=== PATIENT | male | born 1955 | race Caucasian/White ===

== ENCOUNTER 2018-10-15 07:30 | Inpatient (IN) | payer OTHER ==
[2018-10-12 16:32] VITALS: Ht 175.3 cm; Wt 91.5 kg
[2018-10-15] VITALS (26 sets, daily range): BP systolic 121–166; BP diastolic 62–106; PULSE 58–82; RESP 16–31
[~2018-10-15] VITALS: Ht 175.3 cm; Wt 91.5 kg
[2018-10-15] MEDS ORDERED: ACETAMINOPHEN 1000MG/100ML IV 100 ML IVPB ONE (08:30)
[2018-10-15] MEDS ORDERED: DEXAMETHASONE 4 MG/ML 1 ML INJ IV SCH (08:30)
[2018-10-15] MEDS ORDERED: TRANEXAMIC ACID 1GM/100ML(PMX) 100 ML AT CLOSURE X1 IVPB ONE (08:30)
[2018-10-15] MEDS ORDERED: CEFAZOLIN 2 GM/50 ML (PMX) 50 ML IVPB SCH (08:30)
[2018-10-15] MEDS ORDERED: ZOLP12.54 PO (10:17)
[2018-10-15] MEDS ORDERED: FLUR30CA12 PO (10:17)
[2018-10-15] MEDS ORDERED: ESCI20TA PO (10:18)
[2018-10-15] MEDS ORDERED: LAMO200T2 PO (10:18)
[2018-10-15] MEDS ORDERED: LANS30CA PO (10:19)
--- NOTE | 2018-10-15 10:22 | HPN ---
Date/Time of Note Date/Time of Note DATE: 10/15/18 TIME: 10:22 Interval H&P Admission Note Pt. seen H&P reviewed: No system changes CHIQUITA OWENS Oct 15, 2018 10:22
[2018-10-15] MEDS ORDERED: LACTATED RINGER'S 1,000 ML IV SCH (10:30)
[2018-10-15] MEDS ORDERED: BUPIVACAINE 0.5% (SDV) 30 ML INJ ONE (10:59)
[2018-10-15] MEDS ORDERED: ROPIVACAINE 0.5 % 30 ML VIAL ONE (10:59)
[2018-10-15] MEDS ORDERED: BACITRACIN 50000 UNITS INJ ONE (11:21)
--- NOTE | 2018-10-15 11:34 | PREAC ---
Date/Time of Note Date/Time of Note DATE: 10/15/18 TIME: 11:34 Anesthesia Eval and Record Evaluation Time Pre-Procedure Interview DATE: 10/15/18 TIME: 11:34 Age 62 Sex male NPO: 8 hrs Preoperative diagnosis Degenerative joint disease, bilateral knees Planned procedure Bilateral total knee replacement Past Medical History Past Medical History: Includes Pulm: Sleep Apnea, Asthma Psych: Depression Surgery & Anesthesia Issues No known issue Meds Anticoagulation: No Beta Aleena within 24 hr: No Reason Beta Aleena not given: Pt. not on B-Aleena Reported Medications Lansoprazole* (Lansoprazole*) 30 Mg Capsule.dr, 30 MG PO DAILY, CAP 10/15/18 Escitalopram Oxalate* (Lexapro*) 20 Mg Tablet, 20 MG PO DAILY, #30 TAB 10/15/18 Lamotrigine* (Lamotrigine*) 200 Mg Tablet, 200 MG PO BID, TAB 10/15/18 Zolpidem Tartrate* (Zolpidem Tartrate* ER) 12.5 Mg Tab.mphase, 12.5 MG PO HS PRN for INSOMNIA, #30 TAB.SA 10/15/18 Flurazepam Hcl (Flurazepam Hcl) 30 Mg Capsule, 30 MG PO DAILY, CAP 10/15/18 Current Medications Cefazolin Sodium/ Dextrose 50 ml @ 100 mls/hr ONCE IVPB ; Start 10/15/18 at 08:30; Stop 10/15/18 at 16:00 Lactated Ringer's 1,000 ml @ 125 mls/hr Q8H IV Last administered on 10/15/18at 10:59; Admin Dose 125 MLS/HR; Start 10/15/18 at 10:30 Meds reviewed: Yes Allergies Coded Allergies: No Known Allergy (Unverified , 10/15/18) Allergies Reviewed: Yes Labs/Studies Labs Reviewed: Reviewed by anesthesiologist test: N/A Pre-procedure Exam Last vitals Vital Signs Date Temp Pulse Resp B/P (MAP) Pulse Ox O2 O2 Flow FiO2 Time Delivery Rate 10/15/18 97.7 67 16 121/81 97 Room Air 10:34 (94) Airway: Adequate mouth opening Mallampati: Mallampati II Teeth: Normal Lung: Normal Heart: Normal ASA Physical Status ASA physical status: 2 Emergency: None Planned Anesthetic General/MAC: LMA Neuraxial: Spinal Planned Pain Management Single shot nerve block Pre-operative Attestations Prior to commencing anesthesia and surgery, the patient was re-evaluated, there was verification of: *The patient's identity *The results of appropriate recent lab work and preoperative vital signs *The above evaluation not changing prior to induction *Anesthetic plan, risk benefits, alternative and complications discussed with patient/family; questions answered; patient/family understands, accepts and wishes to proceed. JACOB SMITH MD Oct 15, 2018 11:34
[2018-10-15] MEDS ORDERED: PROPOFOL 20 ML ONE (11:42)
[2018-10-15] MEDS ORDERED: LIDOCAINE 2% (SDV) 5 ML INJ ONE (11:42)
[2018-10-15] MEDS ORDERED: POLYMYXIN B 500000 UNIT INJ ONE (11:43)
[2018-10-15] MEDS ORDERED: TRANEXAMIC ACID 1GM/100ML(PMX) 100 ML ONE (11:44)
[2018-10-15] MEDS: TRANEXAMIC ACID 1GM/100ML(PMX) 100 ML AT INCISION X1 IVPB ONE ×2 (12:57)
--- NOTE | 2018-10-15 15:30 | SIPON ---
Date/Time of Note Date/Time of Note DATE: 10/15/18 TIME: 15:29 Operative Report Preoperative Diagnosis Bilateral knee osteoarthritis Postoperative Diagnosis Same Operation/Procedure Performed Bilateral total knee replacement Surgeon see signature line case assistant KHALIDA Angeles Anesthesia: spinal Estimated blood loss: 250 - 300 ml's Transfusion Required none Specimen Bone Grafts/Implants Attune knee, right side has 6 femur, 6 tibia, 5 mm polyethylene and 35 patella. Left side has 6 femur, 5 tibia, 5 mm polyethylene and 35 patella Complications none CHIQUITA OWENS Oct 15, 2018 15:30
--- NOTE | 2018-10-15 15:35 | OPR ---
Date/Time of Note Date/Time of Note DATE: 10/15/18 TIME: 15:30 Operative Report Procedure Date: Oct 15, 2018 Preoperative Diagnosis Bilateral knee osteoarthritis Postoperative Diagnosis Same Operation/Procedure Performed Bilateral total knee replacement Surgeon see signature line Party Supply Specialist ESTEFANIA Angeles Anesthesia Type: spinal Estimated Blood Loss: 250 - 300 ml's Transfusion none Specimen Bone Grafts/Implants Attune knee, right side 6 femur, 6 tibia, 5 mm polyethylene and 35 patella. Left side femur, 5 tibia, 5 polyethylene and 35 patella Tubes/Drains None Complications none Pt Condition Post Procedure: stable Disposition: PACU Indications The patient is a 62-year-old male with advanced osteoarthritis of both his knees Procedure Description The patient was placed supine on the operating room table. Both knees were prepped and draped in usual manner. Preoperative antibiotics were administered. The left knee was addressed first. An anterior incision was made. A mid vastus approach was used and the patella displaced laterally without everting it. Hemostasis was achieved with electrocautery and aqua mantis. Using intramedullary alignment, the distal femoral cut was made in 5 degrees of valgus. The tibia was cut using external alignment. The femur was prepared for a posterior stabilized femoral component. Anterior posterior and chamfer cuts were made. A notch was cut in the distal femur to accommodate the posterior stabilized femoral component. PCL was sacrificed and remnants of the menisci were removed. The patella was cut using a freehand technique. Trials were inserted including a 6 femur, 5 tibia, 35 patella and 5 mm of polyethylene. This resulted in a stable knee from 0 to 120 degrees with good balance and tracking. X-rays confirmed proper alignment of the implants. The trials were then removed and the knee injected with pain cocktail. Hemostasis was confirmed. The knee was thoroughly irrigated and final components cemented in place including a 6 femur, 5 tibia, 35 patella. 5 mm of polyethylene were placed and the knee was carried through full range of motion. The knee was stable with excellent range of motion. The wound was closed in layers using #1 strata fix for deep fascia, 2-0 Vicryl for subcutaneous tissue and 3-0 Monocryl for the skin. The right knee was then exposed. An anterior incision was made. Mid vastus ap proach was used and the patella displaced laterally without everting it. Using intramedullary alignment, the distal femoral cut was made in 5 degrees of valgus. Anterior posterior and chamfer cuts were made. A notch was cut in the distal femur to accommodate the posterior stabilized femoral component. The PCL was sacrificed remnants of the menisci were removed the femur was prepared for a size 6 component. The tibia was cut using external alignment and the patella cut using a freehand technique. The tibia was prepared for a size 6 component and the patella for a 35 mm component trials were inserted. The knee was stable from 0 220 degrees with good balance and tracking. X-rays confirm proper alignment of the implants. Once satisfactory alignment was confirmed, final components were replaced including a 6 femur, 6 tibia, 35 patella and 5 mm of polyethylene. Excess cement was removed. The knee was injected with pain cocktail. The knee had full range of motion with good balance and stability. The knee was closed in layers using #1 strata fix for deep fascia, 2-0 Vicryl for subcutaneous tissue and 3 Monocryl for the skin. Patient was transferred to the recovery room in stable condition CHIQUITA OWENS Oct 15, 2018 15:35
[2018-10-15] MEDS ORDERED: MAGNESIUM HYDROXIDE 30ML CUP PO PRN (16:00)
[2018-10-15] MEDS ORDERED: NACL 0.9% 3 ML SYG IV SCH (16:00)
[2018-10-15] MEDS ORDERED: NALOXONE (0.4 MG/ML) INJ IV PRN (16:00)
[2018-10-15] MEDS ORDERED: MIDAZOLAM 1 MG/ML 2 ML INJ IV PRN (17:00)
[2018-10-15] MEDS ORDERED: DIPHENHYDRAMINE 50 MG INJ IV PRN (17:00)
[2018-10-15] MEDS ORDERED: OXYCODONE/ACETAMINOPHEN (5/325) TAB PO PRN ×2 (17:00)
[2018-10-15] MEDS ORDERED: FENTAnyl 50 MCG/ML VIAL IV PRN ×3 (17:00)
[2018-10-15] MEDS ORDERED: HYDROmorphONE 1 MG/5 ML IV SYRINGE IV PRN ×3 (17:00)
[2018-10-15] MEDS ORDERED: ONDANSETRON 4 MG INJ IV PRN (17:00)
[2018-10-15] MEDS ORDERED: MEPERIDINE 25 MG INJ IV PRN (17:00)
[2018-10-15] MEDS ORDERED: LABETALOL HCL 20MG INJ IV PRN (17:00)
[2018-10-15] MEDS ORDERED: EPHEDrine 25 MG/5 ML SYG IV PRN (17:00)
[2018-10-15] MEDS ORDERED: hydrALAzine 20 MG INJ IV PRN (17:00)
[2018-10-15] MEDS ORDERED: METOCLOPRAMIDE 10 MG INJ IV PRN (17:00)
[2018-10-15] MEDS: KETOROLAC 15 MG INJ IV PRN (17:15)
[2018-10-15] MEDS: CEFAZOLIN 2 GM/50 ML (PMX) 50 ML IVPB SCH (17:35)
[2018-10-15] MEDS: oxyCODONE 5 MG TAB PO PRN (18:19)
[2018-10-15] MEDS: LACTATED RINGER'S 1,000 ML IV SCH (18:32)
--- NOTE | 2018-10-15 18:33 | HP ---
Date/Time of Note Date/Time of Note DATE: 10/15/18 TIME: 18:33 Assessment/Plan VTE Prophylaxis SCD applied (from Ns): Yes Pharmacological prophylaxis: other Lines/Catheters Urinary Cath still in place: Yes Reason Cath still needed: urinary retention Assessment/Plan Assessment/Plan -Bilateral knee osteoarthritis. S/P Bilateral total knee replacement by Dr Persaud continue IV fluids and postoperative antibiotica. Continue Roxicodone and Tor adol as needed for pain and Zofran as needed for nausea, follow-up orthopedic surgery recommendations. Physical therapy. -Depression, resume antidepressant medication from home. Further recommendations based on clinical course. Plan of care discussed with Dr. Crowe. HPI/ROS Admit Date/Time Admit Date/Time Oct 15, 2018 at 09:36 Hx of Present Illness The patient is a 62-year-old gentleman with advanced positive arthritis of bilateral knees was evaluated by in orthopedic surgery consultation. Patient had a history of depression, sleep apnea and hearing impairment. Patient was brought to the hospital and underwent bilateral total knee replacement. Postoperatively patient experiencing moderate pain and patient is admitted for further evaluation and management to medical surgical floor. ROS 12 point review of system is negative except for what mentioned in HPI PMH/Family/Social Past Medical History Medical History: other (Sleep apnea, depression, hearing impairment) Medications Current Medications Lactated Ringer's 1,000 ml @ 80 mls/hr [id number] IV ; Start 10/15/18 at 15:35 IV Flush (NS 3 ml) 3 ml PER PROTOCOL IV ; Start 10/15/18 at 16:00 Oxycodone HCl (Roxicodone) 15 mg Q4H PRN PO .PAIN; Start 10/15/18 at 16:00 Oxycodone HCl (Roxicodone) 10 mg Q4H PRN PO .PAIN Last administered on 10/15/18at 18:19; Admin Dose 10 MG; Start 10/15/18 at 16:00 Oxycodone HCl (Roxicodone) 5 mg Q4H PRN PO .PAIN; Start 10/15/18 at 16:00 Ketorolac Tromethamine (Toradol) 15 mg Q6H PRN IV .PAIN Last administered on 10/15/18at 17:15; Admin Dose 15 MG; Start 10/15/18 at 16:00 Ondansetron HCl (Zofran Inj) 4 mg Q4H PRN IV NAUSEA/VOMITING Last administered on 10/15/18at 17:02; Admin Dose 4 MG; Start 10/16/18 at 16:00 Cefazolin Sodium/ Dextrose 50 ml @ 100 mls/hr Q8H IVPB Last administered on 10/15/18at 17:35; Admin Dose 100 MLS/HR; Start 10/15/18 at 16:00; Stop 10/16/18 at 08:29 Celecoxib (Celebrex) 100 mg BID PO ; Start 10/16/18 at 09:00 Gabapentin (Neurontin) 100 mg TID PO ; Start 10/15/18 at 21:00 Pantoprazole (Protonix Tab) 40 mg DAILY@06 PO ; Start 10/17/18 at 06:00 Docusate Sodium (Colace) 200 mg BID PO ; Start 10/16/18 at 09:00; Stop 10/19/18 at 08:59 Magnesium Hydroxide (Milk Of Mag) 30 ml HS PRN PO .CONSTIPATION; Start 10/15/18 at 16:00 Naloxone HCl (Narcan) 0.2 mg Q2M PRN IV .RESP RATE; Start 10/15/18 at 16:00 Aspirin (Halfprin) 81 mg BID PO ; Start 10/16/18 at 09:00 Hydromorphone HCl (Dilaudid) 0.2 mg PACU PRN IV MILD PAIN 1-3 Last administered on 10/15/18at 17:01; Admin Dose 0.2 MG; Start 10/15/18 at 17:00; Stop 10/15/18 at 22:00 Hydromorphone HCl (Dilaudid) 0.4 mg PACU PRN IV MOD PAIN 4-6; Start 10/15/18 at 17:00; Stop 10/15/18 at 22:00 Hydromorphone HCl (Dilaudid) 0.6 mg PACU PRN IV SEVERE PAIN 7-10; Start 10/15/18 at 17:00; Stop 10/15/18 at 22:00 Fentanyl (Sublimaze) 25 mcg PACU ORDER PRN IV MILD PAIN 1-3 Last administered on 10/15/18at 17:02; Admin Dose 25 MCG; Start 10/15/18 at 17:00; Stop 10/15/18 at 22:00 Fentanyl (Sublimaze) 50 mcg PACU ORDER PRN IV MOD PAIN 4-6; Start 10/15/18 at 17:00; Stop 10/15/18 at 22:00 Fentanyl (Sublimaze) 75 mcg PACU ORDER PRN IV SEVERE PAIN 7-10; Start 10/15/18 at 17:00; Stop 10/15/18 at 22:00 Oxycodone/ Acetaminophen (Percocet (5/ 325)) 1 tab PACU ORDER PRN PO .PAIN 1-5; Start 10/15/18 at 17:00; Stop 10/15/18 at 22:00 Oxycodone/ Acetaminophen (Percocet (5/ 325)) 2 tab PACU ORDER PRN PO .PAIN 6-10; Start 10/15/18 at 17:00; Stop 10/15/18 at 22:00 Ondansetron HCl (Zofran Inj) 4 mg PACU ORDER PRN IV NAUSEA/VOMITING; Start 10/15/18 at 17:00; Stop 10/15/18 at 22:00 Metoclopramide HCl (Reglan) 10 mg PACU ORDER PRN IV NAUSEA/VOMITING; Start 10/15/18 at 17:00; Stop 10/15/18 at 22:00 Labetalol HCl (Labetalol) 5 mg PACU ORDER PRN IV HIGH BLOOD PRESSURE; Start 10/15/18 at 17:00; Stop 10/15/18 at 22:00 Hydralazine HCl (Apresoline) 5 mg PACU ORDER PRN IV HIGH BLOOD PRESSURE; Start 10/15/18 at 17:00; Stop 10/15/18 at 22:00 Ephedrine Sulfate 5 mg PACU ORDER PRN IV BLOOD PRESSURE SUPPORT; Start 10/15/18 at 17:00; Stop 10/15/18 at 22:00 Meperidine HCl (Demerol) 25 mg PACU ORDER PRN IV .RIGORS; Start 10/15/18 at 17:00; Stop 10/15/18 at 22:00 Diphenhydramine HCl (Benadryl) 25 mg PACU ORDER PRN IV .PRURITUS; Start 10/15/18 at 17:00; Stop 10/15/18 at 22:00 Midazolam HCl (Versed) 0.5 mg PACU ORDER PRN IV .ANXIETY; Start 10/15/18 at 17:00; Stop 10/15/18 at 22:00 Coded Allergies: No Known Allergy (Unverified , 10/15/18) Past Surgical History Past Surgical Hx: other (Status post right hand fracture repair) Family History Significant Family History: cancer (Renal cell carcinoma in patient's father, breast cancer in patient's mother) Social History Alcohol Use: rarely Smoking Status: Never smoker Drug Use: none Exam/Review of Systems Vital Signs Vitals Vital Signs Date Temp Pulse Resp B/P (MAP) Pulse Ox O2 O2 Flow FiO2 Time Delivery Rate 10/15/18 97.7 16:37 10/15/18 67 16 121/81 97 Room Air 10:34 (94) Exam Constitutional: alert, oriented Head: normocephalic Neck: supple Respiratory: clear to auscultation Cardiovascular: nl pulses Gastrointestinal: soft, non-tender Musculoskeletal: other (Status post bilateral total knee replacement) Extremities: normal pulses Neurological: nl mental status FARTUN STANTON Oct 15, 2018 18:33
[2018-10-15] MEDS: GABAPENTIN 100 MG CAP PO SCH (20:46)
[2018-10-15] MEDS: HYDROmorphONE 1 MG/ML SYG IV PRN (20:46)
--- NOTE | 2018-10-15 21:23 | PAC ---
Date/Time of Note Date/Time of Note DATE: 10/15/18 TIME: 21:23 Post-Anesthesia Notes Post-Anesthesia Note Last documented vital signs Vital Signs Date Temp Pulse Resp B/P (MAP) Pulse Ox O2 O2 Flow FiO2 Time Delivery Rate 10/15/18 98.0 61 18 154/70 97 19:30 (98) 10/15/18 Nasal 2.0 17:57 Cannula Activity: WNL Respiratory function: WNL Cardiovascular function: WNL Mental status: Baseline Pain reasonably controlled: Yes Hydration appropriate: Yes Nausea/Vomiting absent: Yes JACOB SMITH MD Oct 15, 2018 21:23
[2018-10-16] VITALS (7 sets, daily range): BP systolic 133–157; BP diastolic 60–87; PULSE 59–66; RESP 17–19
[2018-10-16] MEDS ORDERED: ZOLPIDEM TARTRATE 12.5 MG PO PRN
[2018-10-16] MEDS: ZOLPIDEM 5 MG TAB PO PRN ×2 (00:08→20:46)
[2018-10-16] MEDS: KETOROLAC 15 MG INJ IV PRN ×3 (00:15→20:46)
[2018-10-16] MEDS ORDERED: PANTOPRAZOLE (EC) 40 MG TAB PO SCH ×2 (00:30→18:00)
[2018-10-16] MEDS: CALCIUM CARBONATE 500 MG CHEW TAB PO PRN ×2 (00:46→10:50)
[2018-10-16] MEDS: LACTATED RINGER'S 1,000 ML IV SCH ×2 (00:47→18:15)
[2018-10-16] MEDS: CEFAZOLIN 2 GM/50 ML (PMX) 50 ML IVPB SCH ×2 (00:49→09:47)
--- NOTE | 2018-10-16 02:56 | PN ---
Date/Time of Note Date/Time of Note DATE: 10/16/18 TIME: 02:56 Assessment/Plan VTE Prophylaxis SCD applied (from Nsg): Yes Lines/Catheters IV Catheter Type (from Nrsg): Peripheral IV Urinary Cath still in place: Yes Reason Cath still needed: urinary retention Assessment/Plan Assessment/Plan -Bilateral knee osteoarthritis. S/P Bilateral total knee replacement by Dr Persaud continue IV fluids and postoperative antibiotica. Continue Roxicodone and Toradol as needed for pain and Zofran as needed for nausea, follow-up orthopedic surgery recommendations. Physical therapy. -Depression, resume antidepressant medication from home. Further recommendations based on clinical course. Plan of care discussed with Dr. Crowe. Exam/Review of Systems Exam Vitals Vital Signs Date Temp Pulse Resp B/P (MAP) Pulse Ox O2 O2 Flow FiO2 Time Delivery Rate 10/15/18 97.5 58 18 160/93 100 23:35 (115) 10/15/18 Nasal 2.0 17:57 Cannula Intake and Output 10/15/18 10/15/18 10/16/18 1515:00 23:00 07:00 IntakeIntake Total 2100 ml 700 ml OutputOutput Total 300 ml BalanceBalance 2100 ml 400 ml Medications Medication Current Medications Lactated Ringer's 1,000 ml @ 80 mls/hr [id number] IV Last administered on 10/16/18at 00:47; Admin Dose 80 MLS/HR; Start 10/15/18 at 15:35 IV Flush (NS 3 ml) 3 ml PER PROTOCOL IV Last administered on 10/15/18at 20:46; Admin Dose 3 ML; Start 10/15/18 at 16:00 Oxycodone HCl (Roxicodone) 15 mg Q4H PRN PO .PAIN; Start 10/15/18 at 16:00 Oxycodone HCl (Roxicodone) 10 mg Q4H PRN PO .PAIN Last administered on 10/15/18at 18:19; Admin Dose 10 MG; Start 10/15/18 at 16:00 Oxycodone HCl (Roxicodone) 5 mg Q4H PRN PO .PAIN; Start 10/15/18 at 16:00 Ketorolac Tromethamine (Toradol) 15 mg Q6H PRN IV .PAIN Last administered on 10/16/18at 00:15; Admin Dose 15 MG; Start 10/15/18 at 16:00 Ondansetron HCl (Zofran Inj) 4 mg Q4H PRN IV NAUSEA/VOMITING Last administered on 10/15/18at 17:02; Admin Dose 4 MG; Start 10/16/18 at 16:00 Cefazolin Sodium/ Dextrose 50 ml @ 100 mls/hr Q8H IVPB Last administered on 10/16/18at 00:49; Admin Dose 100 MLS/HR; Start 10/15/18 at 16:00; Stop 10/16/18 at 08:29 Celecoxib (Celebrex) 100 mg BID PO ; Start 10/16/18 at 09:00 Gabapentin (Neurontin) 100 mg TID PO Last administered on 10/15/18at 20:46; Admin Dose 100 MG; Start 10/15/18 at 21:00 Docusate Sodium (Colace) 200 mg BID PO ; Start 10/16/18 at 09:00; Stop 10/19/18 at 08:59 Magnesium Hydroxide (Milk Of Mag) 30 ml HS PRN PO .CONSTIPATION; Start 10/15/18 at 16:00 Naloxone HCl (Narcan) 0.2 mg Q2M PRN IV .RESP RATE; Start 10/15/18 at 16:00 Aspirin (Halfprin) 81 mg BID PO ; Start 10/16/18 at 09:00 Hydromorphone HCl (Dilaudid) 1 mg Q3H PRN IV SEVERE PAIN LEVEL 7-10 Last administered on 10/15/18at 20:46; Admin Dose 1 MG; Start 10/15/18 at 20:20 Escitalopram Oxalate (Lexapro) 20 mg DAILY PO ; Start 10/16/18 at 09:00 Lamotrigine (Lamictal) 200 mg BID PO ; Start 10/16/18 at 09:00 Miscellaneous Information 30 mg DAILY PO ; Start 10/16/18 at 09:00; Status UNV Zolpidem Tartrate (Ambien) 10 mg HS PRN PO INSOMNIA Last administered on 10/16/18at 00:08; Admin Dose 10 MG; Start 10/15/18 at 23:45 Pantoprazole (Protonix Tab) 40 mg DAILY PO Last administered on 10/16/18at 00:47; Admin Dose 40 MG; Start 10/16/18 at 00:30 Calcium Carbonate (Tums) 1,000 mg Q6H PRN PO HEARTBURN Last administered on 10/16/18at 00:46; Admin Dose 1,000 MG; Start 10/16/18 at 00:30 MAGDLAENA FABIAN Oct 16, 2018 02:56
--- NOTE | 2018-10-16 02:57 | ERD ---
ER Documentation Chief Complaint Chief Complaint ROS All systems reviewed and are negative except as per history of present illness. Medications Home Meds Reported Medications Lansoprazole* (Lansoprazole*) 30 Mg Capsule.dr, 30 MG PO DAILY, CAP 10/15/18 Escitalopram Oxalate* (Lexapro*) 20 Mg Tablet, 20 MG PO DAILY, #30 TAB 10/15/18 Lamotrigine* (Lamotrigine*) 200 Mg Tablet, 200 MG PO BID, TAB 10/15/18 Zolpidem Tartrate* (Zolpidem Tartrate* ER) 12.5 Mg Tab.mphase, 12.5 MG PO HS PRN for INSOMNIA, #30 TAB.SA 10/15/18 Flurazepam Hcl (Flurazepam Hcl) 30 Mg Capsule, 30 MG PO DAILY, CAP 10/15/18 Allergies Allergies: Coded Allergies: No Known Allergy (Unverified , 10/15/18) PMhx/Soc History of Surgery: Yes (RT HAND SX. ') Anesthesia Reaction: No Hx Neurological Disorder: No Hx Respiratory Disorders: Yes (SLEEP APNEA) Hx Cardiac Disorders: No Hx Psychiatric Problems: Yes (DEPRESSION) Hx Miscellaneous Medical Probl: No Hx Alcohol Use: No Hx Substance Use: No Hx Tobacco Use: No Smoking Status: Never smoker Physical Exam Vitals Vital Signs Date Temp Pulse Resp B/P (MAP) Pulse Ox O2 O2 Flow FiO2 Time Delivery Rate 10/15/18 97.5 58 18 160/93 100 23:35 (115) 10/15/18 98.0 61 18 154/70 97 19:30 (98) 10/15/18 Nasal 2.0 17:57 Cannula 10/15/18 98.4 73 18 143/85 100 Room Air 17:54 (104) 10/15/18 68 17 150/92 100 Room Air 17:49 (111) 10/15/18 64 21 133/89 100 Room Air 17:44 (104) 10/15/18 74 20 148/95 99 Room Air 17:39 (112) 10/15/18 62 31 153/100 100 Room Air 17:34 (117) 10/15/18 58 16 141/85 100 Room Air 17:29 (103) 10/15/18 60 18 151/92 100 Room Air 17:24 (111) 10/15/18 58 17 153/91 100 Room Air 17:19 (111) 10/15/18 64 24 147/89 92 Room Air 17:14 (108) 10/15/18 70 23 161/98 98 Room Air 17:07 (119) 10/15/18 70 21 155/106 98 Room Air 17:04 (122) 10/15/18 66 24 154/99 96 Room Air 16:59 (117) 10/15/18 70 16 154/96 98 Room Air 16:54 (115) 10/15/18 72 21 148/92 97 Nasal 2.0 16:49 (110) Cannula 10/15/18 72 16 166/96 98 Nasal 2.0 16:45 (119) Cannula 10/15/18 78 19 158/101 98 Nasal 4.0 16:44 (120) Cannula 10/15/18 74 16 154/96 98 Nasal 4.0 16:39 (115) Cannula 10/15/18 97.7 16:37 10/15/18 76 21 149/91 98 Mask 8.0 16:34 (110) 10/15/18 77 19 150/83 99 Mask 8.0 16:29 (105) 10/15/18 97.7 82 18 148/84 98 Mask 8.0 16:24 (105) 10/15/18 Simple 8.0 16:24 Mask 10/15/18 97.7 67 16 121/81 97 Room Air 10:34 (94) Physical Exam Const: No acute distress Head: Atraumatic Eyes: Normal Conjunctiva ENT: Normal External Ears, Nose and Mouth. Neck: Full range of motion. No meningismus. Resp: Clear to auscultation bilaterally Cardio: Regular rate and rhythm, no murmurs Abd: Soft, non tender, non distended. Normal bowel sounds Skin: No petechiae or rashes Back: No midline or flank tenderness Ext: No cyanosis, or edema Neur: Awake and alert Psych: Normal Mood and Affect Results 24 hrs Current Medications Medications Dose Sig/Marah Start Time Status Last (Trade) Ordered Route PRN Stop Time Admin Dose Reason Admin Cefazolin 50 ml @ ONCE IVPB 10/15/18 DC Sodium/ 100 mls/hr 08:30 Dextrose 10/15/18 16:00 100 ml @ ONCE ONCE 10/15/18 DC 10/15/18 Acetaminophen 400 mls/hr IVPB 08:30 10:21 400 10/15/18 08:44 MLS/HR 4 mg ONCE IV 10/15/18 DC 10/15/18 Dexamethasone 08:30 10:20 4 MG (Decadron) 10/15/18 08:31 Tranexamic 100 ml @ AT INCISION 10/15/18 DC 10/15/18 Acid 200 mls/hr ONCE IVPB 08:30 12:57 10/15/18 08:59 Tranexamic 100 ml @ AT CLOSURE 10/15/18 DC Acid 330 mls/hr ONCE IVPB 08:30 10/15/18 08:48 INTRA-OP 10/15/18 DC 10/15/18 Ropivacaine/ ONCE IRR 08:30 14:20 111.5 Clonidine 10/15/18 08:31 ML HCl/ Epinephrine/ Ketorolac Tromethamine/ Sodium Chloride Lactated 1,000 ml @ Q8H IV 10/15/18 DC 10/15/18 Ringer's 125 mls/hr 10:30 10:59 125 10/15/18 16:04 MLS/HR Ropivacaine 30 ml STK-MED 10/15/18 DC (Naropin ONCE .ROUTE 10:59 0.5%) 10/15/18 11:00 Bupivacaine 30 ml STK-MED 10/15/18 DC HCl ONCE .ROUTE 10:59 (Marcaine 10/15/18 11:00 0.5% (Sdv)) Bacitracin 50,000 units STK-MED 10/15/18 DC 10/15/18 (Baciim) ONCE .ROUTE 11:21 12:40 50,000 10/15/18 11:22 UNITS Propofol 20 ml @ ud STK-MED 10/15/18 DC ONCE .ROUTE 11:42 10/15/18 11:43 Lidocaine 100 mg STK-MED 10/15/18 DC (Xylocaine ONCE .ROUTE 11:42 2% (Sdv)) 10/15/18 11:43 Polymyxin B 500,000 unit STK-MED 10/15/18 DC 10/15/18 Sulfate ONCE .ROUTE 11:43 12:40 500,00 (Polymyxin B) 10/15/18 11:44 0 UNIT Tranexamic 100 ml @ ud STK-MED 10/15/18 DC Acid ONCE .ROUTE 11:44 10/15/18 11:45 Lactated 1,000 ml @ [id number] IV 10/15/18 10/16/18 Ringer's 80 mls/hr 15:35 00:47 80 MLS/HR IV Flush 3 ml PER 10/15/18 10/15/18 (NS 3 ml) PROTOCOL IV 16:00 20:46 3 ML Oxycodone 15 mg Q4H PRN 10/15/18 HCl PO .PAIN 16:00 (Roxicodone) Oxycodone 10 mg Q4H PRN 10/15/18 10/15/18 HCl PO .PAIN 16:00 18:19 10 MG (Roxicodone) Oxycodone 5 mg Q4H PRN 10/15/18 HCl PO .PAIN 16:00 (Roxicodone) Ketorolac 15 mg Q6H PRN 10/15/18 10/16/18 Tromethamine IV .PAIN 16:00 00:15 15 MG (Toradol) Ondansetron 4 mg Q4H PRN 10/16/18 10/15/18 HCl (Zofran IV 16:00 17:02 4 MG Inj) NAUSEA/VOMITI NG Cefazolin 50 ml @ Q8H IVPB 10/15/18 10/16/18 Sodium/ 100 mls/hr 16:00 00:49 100 Dextrose 10/16/18 08:29 MLS/HR Celecoxib 100 mg BID PO 10/16/18 (Celebrex) 09:00 Gabapentin 100 mg TID PO 10/15/18 10/15/18 (Neurontin) 21:00 20:46 100 MG 40 mg DAILY@06 10/17/18 DC Pantoprazole PO 06:00 (Protonix 10/17/18 06:00 Tab) Docusate 200 mg BID PO 10/16/18 Sodium 09:00 (Colace) 10/19/18 08:59 Magnesium 30 ml HS PRN PO 10/15/18 Hydroxide .CONSTIPATION 16:00 (Milk Of Mag) Naloxone 0.2 mg Q2M PRN IV 10/15/18 HCl .RESP RATE 16:00 (Narcan) Aspirin 81 mg BID PO 10/16/18 (Halfprin) 09:00 0.2 mg PACU PRN 10/15/18 DC 10/15/18 Hydromorphone IV MILD PAIN 17:00 17:01 0.2 MG HCl 1-3 10/15/18 22:00 (Dilaudid) 0.4 mg PACU PRN 10/15/18 DC Hydromorphone IV MOD PAIN 17:00 HCl 4-6 10/15/18 22:00 (Dilaudid) 0.6 mg PACU PRN 10/15/18 DC Hydromorphone IV SEVERE 17:00 HCl PAIN 7-10 10/15/18 22:00 (Dilaudid) Fentanyl 25 mcg PACU ORDER 10/15/18 DC 10/15/18 (Sublimaze) PRN IV MILD 17:00 17:02 25 MCG PAIN 1-3 10/15/18 22:00 Fentanyl 50 mcg PACU ORDER 10/15/18 DC (Sublimaze) PRN IV MOD 17:00 PAIN 4-6 10/15/18 22:00 Fentanyl 75 mcg PACU ORDER 10/15/18 DC (Sublimaze) PRN IV 17:00 SEVERE PAIN 10/15/18 22:00 7-10 Oxycodone/ 1 tab PACU ORDER 10/15/18 DC Acetaminophen PRN PO 17:00 (Percocet .PAIN 1-5 10/15/18 22:00 (5/ 325)) Oxycodone/ 2 tab PACU ORDER 10/15/18 DC Acetaminophen PRN PO 17:00 (Percocet .PAIN 6-10 10/15/18 22:00 (5/ 325)) Ondansetron 4 mg PACU ORDER 10/15/18 DC HCl (Zofran PRN IV 17:00 Inj) NAUSEA/VOMITI 10/15/18 22:00 NG 10 mg PACU ORDER 10/15/18 DC Metoclopramid PRN IV 17:00 e HCl NAUSEA/VOMITI 10/15/18 22:00 (Reglan) NG Labetalol 5 mg PACU ORDER 10/15/18 DC HCl PRN IV HIGH 17:00 (Labetalol) BLOOD 10/15/18 22:00 PRESSURE Hydralazine 5 mg PACU ORDER 10/15/18 DC HCl PRN IV HIGH 17:00 (Apresoline) BLOOD 10/15/18 22:00 PRESSURE Ephedrine 5 mg PACU ORDER 10/15/18 DC Sulfate PRN IV 17:00 BLOOD 10/15/18 22:00 PRESSURE SUPPORT Meperidine 25 mg PACU ORDER 10/15/18 DC HCl PRN IV 17:00 (Demerol) .RIGORS 10/15/18 22:00 25 mg PACU ORDER 10/15/18 DC Diphenhydrami PRN IV 17:00 ne HCl .PRURITUS 10/15/18 22:00 (Benadryl) Midazolam 0.5 mg PACU ORDER 10/15/18 DC HCl PRN IV 17:00 (Versed) .ANXIETY 10/15/18 22:00 1 mg Q3H PRN 10/15/18 10/15/18 Hydromorphone IV SEVERE 20:20 20:46 1 MG HCl PAIN LEVEL (Dilaudid) 7-10 20 mg DAILY PO 10/16/18 Escitalopram 09:00 Oxalate (Lexapro) Lamotrigine 200 mg BID PO 10/16/18 (Lamictal) 09:00 30 mg DAILY PO 10/16/18 DC Lansoprazole 09:00 (Prevacid) 10/16/18 09:00 30 mg DAILY PO 10/16/18 UNV Miscellaneous 09:00 Information 12.5 mg HS PRN PO 10/16/18 DC Miscellaneous INSOMNIA 00:00 Information 10/16/18 00:00 Zolpidem 10 mg HS PRN PO 10/15/18 10/16/18 Tartrate INSOMNIA 23:45 00:08 10 MG (Ambien) 40 mg DAILY PO 10/16/18 10/16/18 Pantoprazole 00:30 00:47 40 MG (Protonix Tab) Calcium 1,000 mg Q6H PRN 10/16/18 10/16/18 Carbonate PO HEARTBURN 00:30 00:46 1,000 (Tums) MG MAGDALENA FABIAN Oct 16, 2018 02:57
[2018-10-16] MEDS: HYDROmorphONE 1 MG/ML SYG IV PRN ×2 (03:48→12:24)
[2018-10-16] MEDS: oxyCODONE 5 MG TAB PO PRN ×3 (06:47→19:45)
[2018-10-16] MEDS: DOCUSATE SODIUM 100 MG CAP PO SCH ×2 (08:44→20:48)
[2018-10-16] MEDS: LAMOTRIGINE 100 MG TAB PO SCH ×2 (08:45→20:47)
[2018-10-16] MEDS: GABAPENTIN 100 MG CAP PO SCH ×3 (08:50→20:46)
[2018-10-16] MEDS: ESCITALOPRAM 10 MG TAB PO SCH (08:50)
[2018-10-16] MEDS: CELECOXIB 100 MG CAP PO SCH ×2 (08:50→20:48)
[2018-10-16] MEDS: PANTOPRAZOLE (EC) 40 MG TAB PO SCH ×2 (08:50→18:00)
[2018-10-16] MEDS: ASPIRIN (EC) 81 MG TAB PO SCH ×2 (08:50→20:48)
[2018-10-16] MEDS ORDERED: FLURAZEPAM HCL 30 MG PO SCH (09:00)
[2018-10-16] MEDS ORDERED: LANSOPRAZOLE 30 MG CAP PO SCH (09:00)
[2018-10-16] MEDS ORDERED: ONDANSETRON 4 MG INJ IV PRN (16:00)
[2018-10-17] MEDS: oxyCODONE 5 MG TAB PO PRN ×5 (02:49→21:13)
[2018-10-17 03:54] VITALS: BP 139/76; PULSE 72; RESP 20
[2018-10-17] MEDS: LACTATED RINGER'S 1,000 ML IV SCH ×2 (05:05→16:41)
[2018-10-17] MEDS: PANTOPRAZOLE (EC) 40 MG TAB PO SCH ×2 (05:39→16:50)
[2018-10-17] MEDS ORDERED: PANTOPRAZOLE (EC) 40 MG TAB PO SCH (06:00)
[2018-10-17 08:02] VITALS: BP 136/82; RESP 20
[2018-10-17] MEDS: ESCITALOPRAM 10 MG TAB PO SCH (08:43)
[2018-10-17] MEDS: CELECOXIB 100 MG CAP PO SCH ×2 (08:43→21:11)
[2018-10-17] MEDS: ASPIRIN (EC) 81 MG TAB PO SCH ×2 (08:44→21:12)
[2018-10-17] MEDS: DOCUSATE SODIUM 100 MG CAP PO SCH ×2 (08:44→21:12)
[2018-10-17] MEDS: LAMOTRIGINE 100 MG TAB PO SCH ×2 (08:44→21:12)
[2018-10-17] MEDS: GABAPENTIN 100 MG CAP PO SCH ×3 (08:44→21:11)
[2018-10-17] MEDS: KETOROLAC 15 MG INJ IV PRN ×2 (10:53→19:34)
--- NOTE | 2018-10-17 11:15 | PN ---
Date/Time of Note Date/Time of Note DATE: 10/17/18 TIME: 11:15 Assessment/Plan VTE Prophylaxis Risk score (from Ns)>0 risk: 8 SCD applied (from Nsg): Yes Pharmacological prophylaxis: LMWH Lines/Catheters IV Catheter Type (from Nrsg): Saline Lock Urinary Cath still in place: Yes Reason Cath still needed: skin wounds contaminated by urine Assessment/Plan Hospital Course -Bilateral knee osteoarthritis. S/P Bilateral total knee replacement by Dr Persaud continue IV fluids and postoperative antibiotica. Continue Roxicodone and Toradol as needed for pain and Zofran as needed for nausea, follow-up orthopedic surgery recommendations. Physical therapy. -Depression, resume antidepressant medication from home. Result Diagram: 10/17/18 0810 10/17/18 0810 Results 24hrs Laboratory Tests Test 10/17/18 08:10 White Blood Count 8.9 Red Blood Count 4.15 L Hemoglobin 11.4 L Hematocrit 35.3 L Mean Corpuscular Volume 85.1 Mean Corpuscular Hemoglobin 27.5 L Mean Corpuscular Hemoglobin Concent 32.3 Red Cell Distribution Width 14.1 Platelet Count 248 Mean Platelet Volume 10.0 Immature Granulocytes % 0.300 Neutrophils % 72.8 Lymphocytes % 14.9 L Monocytes % 9.1 Eosinophils % 2.1 Basophils % 0.8 Nucleated Red Blood Cells % 0.0 Immature Granulocytes # 0.030 Neutrophils # 6.5 Lymphocytes # 1.3 Monocytes # 0.8 Eosinophils # 0.2 Basophils # 0.1 Nucleated Red Blood Cells # 0.0 Sodium Level 137 Potassium Level 4.5 Chloride Level 101 Carbon Dioxide Level 30 Anion Gap 6 Blood Urea Nitrogen 15 Creatinine 0.85 Est Glomerular Filtrat Rate mL/min > 60 Glucose Level 119 Calcium Level 9.0 Subjective 24 Hr Interval Summary Free Text/Dictation Patient has knee pain related to recent surgery but exacerbated by therapy Exam/Review of Systems Exam Vitals Vital Signs Date Temp Pulse Resp B/P (MAP) Pulse Ox O2 O2 Flow FiO2 Time Delivery Rate 10/17/18 98.8 20 136/82 95 Room Air 08:02 (100) 10/17/18 72 03:54 10/15/18 2.0 20:40 Intake and Output 10/16/18 10/16/18 10/17/18 1515:00 23:00 07:00 IntakeIntake Total 50 ml 2260 ml 920 ml OutputOutput Total 2800 ml 1500 ml BalanceBalance 50 ml -540 ml -580 ml Constitutional: well developed Head: normocephalic, atraumatic Neck: supple Respiratory: clear to auscultation Cardiovascular: regular rate and rhythm Gastrointestinal: soft, non-tender Extremities: normal pulses Results Results 24hrs Laboratory Tests Test 10/17/18 08:10 White Blood Count 8.9 Red Blood Count 4.15 L Hemoglobin 11.4 L Hematocrit 35.3 L Mean Corpuscular Volume 85.1 Mean Corpuscular Hemoglobin 27.5 L Mean Corpuscular Hemoglobin Concent 32.3 Red Cell Distribution Width 14.1 Platelet Count 248 Mean Platelet Volume 10.0 Immature Granulocytes % 0.300 Neutrophils % 72.8 Lymphocytes % 14.9 L Monocytes % 9.1 Eosinophils % 2.1 Basophils % 0.8 Nucleated Red Blood Cells % 0.0 Immature Granulocytes # 0.030 Neutrophils # 6.5 Lymphocytes # 1.3 Monocytes # 0.8 Eosinophils # 0.2 Basophils # 0.1 Nucleated Red Blood Cells # 0.0 Sodium Level 137 Potassium Level 4.5 Chloride Level 101 Carbon Dioxide Level 30 Anion Gap 6 Blood Urea Nitrogen 15 Creatinine 0.85 Est Glomerular Filtrat Rate mL/min > 60 Glucose Level 119 Calcium Level 9.0 Medications Medication Current Medications Lactated Ringer's 1,000 ml @ 80 mls/hr [id number] IV Last administered on 10/16/18at 00:47; Admin Dose 80 MLS/HR; Start 10/15/18 at 15:35 IV Flush (NS 3 ml) 3 ml PER PROTOCOL IV Last administered on 10/15/18at 20:46; Admin Dose 3 ML; Start 10/15/18 at 16:00 Oxycodone HCl (Roxicodone) 15 mg Q4H PRN PO .PAIN Last administered on 10/17/18a t 08:45; Admin Dose 15 MG; Start 10/15/18 at 16:00 Oxycodone HCl (Roxicodone) 10 mg Q4H PRN PO .PAIN Last administered on 10/17/18at 02:49; Admin Dose 10 MG; Start 10/15/18 at 16:00 Oxycodone HCl (Roxicodone) 5 mg Q4H PRN PO .PAIN; Start 10/15/18 at 16:00 Ketorolac Tromethamine (Toradol) 15 mg Q6H PRN IV .PAIN Last administered on 10/17/18 10:53; Admin Dose 15 MG; Start 10/15/18 at 16:00 Ondansetron HCl (Zofran Inj) 4 mg Q4H PRN IV NAUSEA/VOMITING Last administered on 10/15/18 17:02; Admin Dose 4 MG; Start 10/16/18 at 16:00 Celecoxib (Celebrex) 100 mg BID PO Last administered on 10/17/18 08:43; Admin Dose 100 MG; Start 10/16/18 at 09:00 Gabapentin (Neurontin) 100 mg TID PO Last administered on 10/17/18 08:44; Admin Dose 100 MG; Start 10/15/18 at 21:00 Docusate Sodium (Colace) 200 mg BID PO Last administered on 10/17/18 08:44; Admin Dose 200 MG; Start 10/16/18 at 09:00; Stop 10/19/18 at 08:59 Magnesium Hydroxide (Milk Of Mag) 30 ml HS PRN PO .CONSTIPATION; Start 10/15/18 at 16:00 Naloxone HCl (Narcan) 0.2 mg Q2M PRN IV .RESP RATE; Start 10/15/18 at 16:00 Aspirin (Halfprin) 81 mg BID PO Last administered on 10/17/18 08:44; Admin Dose 81 MG; Start 10/16/18 at 09:00 Hydromorphone HCl (Dilaudid) 1 mg Q3H PRN IV SEVERE PAIN LEVEL 7-10 Last administered on 10/16/18 12:24; Admin Dose 1 MG; Start 10/15/18 at 20:20 Escitalopram Oxalate (Lexapro) 20 mg DAILY PO Last administered on 10/17/18 08:43; Admin Dose 20 MG; Start 10/16/18 at 09:00 Lamotrigine (Lamictal) 200 mg BID PO Last administered on 10/17/18 08:44; Admin Dose 200 MG; Start 10/16/18 at 09:00 Miscellaneous Information 30 mg DAILY PO ; Start 10/16/18 at 09:00; Status UNV Zolpidem Tartrate (Ambien) 10 mg HS PRN PO INSOMNIA Last administered on 10/16/18 20:46; Admin Dose 10 MG; Start 10/15/18 at 23:45 Calcium Carbonate (Tums) 1,000 mg Q6H PRN PO HEARTBURN Last administered on 10/16/18 10:50; Admin Dose 1,000 MG; Start 10/16/18 at 00:30 Pantoprazole (Protonix Tab) 40 mg BID@06,18 PO Last administered on 10/16/18 18:00; Admin Dose 40 MG; Start 10/16/18 at 08:30 EVAN BAZAN Oct 17, 2018 11:15
[2018-10-17 14:27] VITALS: BP 143/75; PULSE 78; RESP 20
[2018-10-17 20:21] VITALS: BP 136/84; PULSE 104; RESP 18
[2018-10-17] MEDS: ZOLPIDEM 5 MG TAB PO PRN (21:11)
[2018-10-18 02:59] VITALS: BP 117/57; PULSE 91; RESP 18
[2018-10-18] MEDS: oxyCODONE 5 MG TAB PO PRN (03:08)
[2018-10-18] MEDS: PANTOPRAZOLE (EC) 40 MG TAB PO SCH (06:00)
[2018-10-18] MEDS: LACTATED RINGER'S 1,000 ML IV SCH (06:05)
[2018-10-18 07:35] VITALS: BP 110/68; PULSE 73; RESP 17
[2018-10-18] MEDS: ESCITALOPRAM 10 MG TAB PO SCH (08:22)
[2018-10-18] MEDS: ASPIRIN (EC) 81 MG TAB PO SCH (08:22)
[2018-10-18] MEDS: GABAPENTIN 100 MG CAP PO SCH ×2 (08:22→12:48)
[2018-10-18] MEDS: CELECOXIB 100 MG CAP PO SCH (08:22)
[2018-10-18] MEDS: DOCUSATE SODIUM 100 MG CAP PO SCH (08:22)
[2018-10-18] MEDS: LAMOTRIGINE 100 MG TAB PO SCH (08:23)
--- NOTE | 2018-10-18 11:15 | PN ---
Date/Time of Note Date/Time of Note DATE: 10/18/18 TIME: 11:14 Assessment/Plan VTE Prophylaxis Risk score (from Ns)>0 risk: 13 SCD applied (from Ns): Yes Pharmacological prophylaxis: LMWH Lines/Catheters IV Catheter Type (from Nrsg): Saline Lock Urinary Cath still in place: No Assessment/Plan Hospital Course -Bilateral knee osteoarthritis. S/P Bilateral total knee replacement by Dr Persaud continue IV fluids and postoperative antibiotica. Continue Roxicodone and Toradol as needed for pain and Zofran as needed for nausea, follow-up orthopedic surgery recommendations. Physical therapy. -Depression, resume antidepressant medication from home. Result Diagram: 10/17/18 0810 10/17/18 0810 Subjective 24 Hr Interval Summary Free Text/Dictation Patient not in room, apparently having PT, so unable to interview patient Exam/Review of Systems Exam Vitals Vital Signs Date Temp Pulse Resp B/P (MAP) Pulse Ox O2 O2 Flow FiO2 Time Delivery Rate 10/18/18 97.9 73 17 110/68 100 Room Air 07:35 (82) 10/15/18 2.0 20:40 Intake and Output 10/17/18 10/17/18 10/18/18 1515:00 23:00 07:00 IntakeIntake Total 700 ml 300 ml 200 ml OutputOutput Total 850 ml 250 ml 500 ml BalanceBalance -150 ml 50 ml -300 ml Exam Patient not in room so unable to examine Medications Medication Current Medications Lactated Ringer's 1,000 ml @ 80 mls/hr [id number] IV Last administered on 10/16/18at 00:47; Admin Dose 80 MLS/HR; Start 10/15/18 at 15:35 IV Flush (NS 3 ml) 3 ml PER PROTOCOL IV Last administered on 10/15/18at 20:46; Admin Dose 3 ML; Start 10/15/18 at 16:00 Oxycodone HCl (Roxicodone) 15 mg Q4H PRN PO .PAIN Last administered on 10/17/18at 12:39; Admin Dose 15 MG; Start 10/15/18 at 16:00 Oxycodone HCl (Roxicodone) 10 mg Q4H PRN PO .PAIN Last administered on at 16:51; Admin Dose 10 MG; Start 10/15/18 at 16:00 Oxycodone HCl (Roxicodone) 5 mg Q4H PRN PO .PAIN Last administered on 10/18/18 03:08; Admin Dose 5 MG; Start 10/15/18 at 16:00 Ketorolac Tromethamine (Toradol) 15 mg Q6H PRN IV .PAIN Last administered on 10/17/18 19:34; Admin Dose 15 MG; Start 10/15/18 at 16:00 Ondansetron HCl (Zofran Inj) 4 mg Q4H PRN IV NAUSEA/VOMITING Last administered on 10/15/18 17:02; Admin Dose 4 MG; Start 10/16/18 at 16:00 Celecoxib (Celebrex) 100 mg BID PO Last administered on 10/18/18 08:22; Admin Dose 100 MG; Start 10/16/18 at 09:00 Gabapentin (Neurontin) 100 mg TID PO Last administered on 10/18/18 08:22; Admin Dose 100 MG; Start 10/15/18 at 21:00 Docusate Sodium (Colace) 200 mg BID PO Last administered on 10/18/18 08:22; Admin Dose 200 MG; Start 10/16/18 at 09:00; Stop 10/19/18 at 08:59 Magnesium Hydroxide (Milk Of Mag) 30 ml HS PRN PO .CONSTIPATION Last administered on 10/18/18 08:24; Admin Dose 30 ML; Start 10/15/18 at 16:00 Naloxone HCl (Narcan) 0.2 mg Q2M PRN IV .RESP RATE; Start 10/15/18 at 16:00 Aspirin (Halfprin) 81 mg BID PO Last administered on 10/18/18 08:22; Admin Dose 81 MG; Start 10/16/18 at 09:00 Hydromorphone HCl (Dilaudid) 1 mg Q3H PRN IV SEVERE PAIN LEVEL 7-10 Last administered on 10/16/18 12:24; Admin Dose 1 MG; Start 10/15/18 at 20:20 Escitalopram Oxalate (Lexapro) 20 mg DAILY PO Last administered on 10/18/18 08:22; Admin Dose 20 MG; Start 10/16/18 at 09:00 Lamotrigine (Lamictal) 200 mg BID PO Last administered on 10/18/18 08:23; Admin Dose 200 MG; Start 10/16/18 at 09:00 Zolpidem Tartrate (Ambien) 10 mg HS PRN PO INSOMNIA Last administered on 10/17/18 21:11; Admin Dose 10 MG; Start 10/15/18 at 23:45 Calcium Carbonate (Tums) 1,000 mg Q6H PRN PO HEARTBURN Last administered on 10/16/18 10:50; Admin Dose 1,000 MG; Start 10/16/18 at 00:30 Pantoprazole (Protonix Tab) 40 mg BID@06,18 PO Last administered on 10/17/18 16:50; Admin Dose 40 MG; Start 10/16/18 at 08:30 EVAN BAZAN Oct 18, 2018 11:15
--- NOTE | 2018-10-18 13:51 | DS ---
Date/Time of Note Date/Time of Note DATE: 10/18/18 TIME: 13:49 Discharge Summary Admission/Discharge Info Admit Date/Time Oct 15, 2018 at 09:36 Discharge Date/Time 10/18/18 Discharge Diagnosis -Bilateral knee osteoarthritis. S/P Bilateral total knee replacement by Dr Persaud continue IV fluids and postoperative antibiotica. Continue Roxicodone and Toradol as needed for pain and Zofran as needed for nausea, follow-up orthopedic surgery recommendations. Physical therapy. -Depression, resume antidepressant medication from home. Patient Condition: Fair Consults Orthopedic surgery Procedures total knee replacement Hx of Present Illness Patietn with bilateral knee osteoarthritis comes in for bilateral total knee replacement. Hospital Course Patietn with bilateral knee osteoarthritis comes in for bilateral total knee replacement. Patient tolerated the procedure and when felt to be stable, patient was sent home. -Bilateral knee osteoarthritis. S/P Bilateral total knee replacement by Dr Persaud continue IV fluids and postoperative antibiotica. Continue Roxicodone and Toradol as needed for pain and Zofran as needed for nausea, follow-up orthopedic surgery recommendations. Physical therapy. -Depression, resume antidepressant medication from home. Home Meds Reported Medications Lansoprazole* (Lansoprazole*) 30 Mg Capsule.dr, 30 MG PO DAILY, CAP 10/15/18 Escitalopram Oxalate* (Lexapro*) 20 Mg Tablet, 20 MG PO DAILY, #30 TAB 10/15/18 Lamotrigine* (Lamotrigine*) 200 Mg Tablet, 200 MG PO BID, TAB 10/15/18 Zolpidem Tartrate* (Zolpidem Tartrate* ER) 12.5 Mg Tab.mphase, 12.5 MG PO HS PRN for INSOMNIA, #30 TAB.SA 10/15/18 Flurazepam Hcl (Flurazepam Hcl) 30 Mg Capsule, 30 MG PO DAILY, CAP 10/15/18 Primary Care Provider Not On Staff Doctor Pending Labs Laboratory Tests Test 10/18/18 11:27 White Blood Count 12.5 10^3/ul (4.8-10.8) Red Blood Count 4.30 10^6/ul (4.70-6.10) Hemoglobin 11.5 g/dl (14.0-18.0) Hematocrit 36.2 % (42.0-52.0) Mean Corpuscular Volume 84.2 fl (82.0-101.0) Mean Corpuscular Hemoglobin 26.7 pg (29.0-33.0) Mean Corpuscular Hemoglobin Concent 31.8 g/dl (32.0-37.0) Red Cell Distribution Width 14.0 % (11.5-14.5) Platelet Count 286 10^3/UL (140-415) Mean Platelet Volume 9.7 fl (7.4-10.4) Immature Granulocytes % 0.200 % (0.001-0.429) Neutrophils % 75.9 % (39.0-77.0) Lymphocytes % 10.7 % (15.0-51.0) Monocytes % 11.3 % (0.0-11.0) Eosinophils % 1.2 % (0.0-7.0) Basophils % 0.7 % (0.0-2.0) Nucleated Red Blood Cells % 0.0 /100WBC (0.0-0.0) Immature Granulocytes # 0.030 10^3/ul (0.0-0.031) Neutrophils # 9.5 10^3/ul (1.6-7.5) Lymphocytes # 1.3 10^3/ul (0.8-2.9) Monocytes # 1.4 10^3/ul (0.3-0.9) Eosinophils # 0.2 10^3/ul (0.0-0.5) Basophils # 0.1 10^3/ul (0.0-0.1) Nucleated Red Blood Cells # 0.0 10^3/ul (0.0-0.0) Sodium Level 138 mmol/L (135-144) Potassium Level 4.4 mmol/L (3.5-5.1) Chloride Level 101 mmol/L (97-110) Carbon Dioxide Level 30 mmol/L (21-31) Anion Gap 7 (5-13) Blood Urea Nitrogen 17 mg/dl (7-20) Creatinine 0.90 mg/dl (0.61-1.24) Est Glomerular Filtrat Rate mL/min > 60 mL/min (>60) Glucose Level 109 mg/dl (70-220) Calcium Level 9.3 mg/dl (8.4-10.2) EVAN BAZAN Oct 18, 2018 13:51
== END 2018-10-18 14:50 | disposition home health service (06) | DRG 462 ==
LOC: REC 09:36 → MS1 18:15 → UNDODISIN 10-18 14:50
PROVIDERS: ADMIT Orthopaedic Surgery; ATTEND Orthopaedic Surgery
PROC: 0SRC0J9 Replacement of Right Knee Joint with Synthetic Substitute, Cemented, Open Approach (ICD-10-PCS; 2018-10-15)
PROC: 0SRD0J9 Replacement of Left Knee Joint with Synthetic Substitute, Cemented, Open Approach (ICD-10-PCS; principal; 2018-10-15 11:30)
DX: M17.0 Bilateral primary osteoarthritis of knee (principal); F32.9 Major depressive disorder, single episode, unspecified; K21.9 Gastro-esophageal reflux disease without esophagitis; E66.9 Obesity, unspecified; Z68.29 Body mass index [BMI] 29.0-29.9, adult; Z87.891 Personal history of nicotine dependence
CPT/HCPCS: 73560; 80048; 85025; 86850; 86900; 86901; 87081; 88304; 88311; 97110; 97116; 97162; 97530; C1776; J0131; J0171; J0690; J1100; J1170; J1885; J2405; J2795; J3010; J7120